=== PATIENT | male | born 1975 | race Caucasian/White ===

== ENCOUNTER 2018-10-07 22:10 | Emergency (ER) | payer OTHER ==
[2018-10-07 22:19] VITALS: BP 156/106
[2018-10-07] MEDS ORDERED: IBUPROFEN 200 MG TAB PO ONE (22:27)
--- NOTE | 2018-10-07 22:27 | EDPHY ---
H & P Stated Complaint: hurt tailbone Time Seen by Provider: 10/07/18 22:36 HPI/ROS: HPI The patient presents with pain in his tailbone region that has been present for the last 1 day. He has fallen twice, slipping on the ice today and landed on his buttocks. He suspects this is why his tailbone hurts. He is able to walk. He denies any numbness or tingling in his legs. He does not have any bowel or bladder changes. The pain in his tailbone is aching and worse with walking. He also says he is feeling sad. He is here from [place], moved about 7 days ago he says because he was looking for happiness. He took the bus here and [facility]. He has a history of depression and takes fluoxetine and another medication for this. He says he is poorly compliant with his medications in general. He says he feels sad though denies any SI or HI and feel safe. He reports that he uses marijuana and methamphetamine. He has been admitted to mental health hospitals in [place], last about 1 month ago for feeling suicidal without a plan.. REVIEW OF SYSTEMS 10 systems were reviewed and negative with the exception of the elements mentioned in the history of present illness. PMHx: History of depression he says for his whole life, takes medication, has been admitted to mental health hospitals for suicidal ideation in the past Soc Hx: Homeless, originally from [facility], moved to [place] 1 week ago, uses marijuana, methamphetamine, denies alcohol use PHYSICAL General Appearance: Alert, no distress Eyes: Pupils equal and round no pallor or injection ENT, Mouth: Mucous membranes moist Respiratory: There are no retractions, lungs are clear to auscultation Cardiovascular: Regular rate and rhythm Gastrointestinal: Abdomen is soft and non-tender, no masses, bowel sounds normal Neurological: A&O, moves all extremities Skin: Warm and dry, no rashes Musculoskeletal: Neck is supple non tender , mild tenderness overlying his coccyx Extremities: symmetrical, full range of motion Psychiatric: Patient is oriented X 3, there is no agitation Source: Patient Exam Limitations: No limitations - Personal History Current Tetanus/Diphtheria Vaccine: Yes Current Tetanus Diphtheria and Acellular Pertussis (TDAP): Yes - Medical/Surgical History Hx Asthma: No Hx Chronic Respiratory Disease: No Hx Diabetes: No Hx Cardiac Disease: No Hx Renal Disease: No Hx Cirrhosis: No Hx Alcoholism: Yes Hx HIV/AIDS: No Hx Splenectomy or Spleen Trauma: No Other PMH: depressed, bipolar, left foot surgery - Social History Smoking Status: Current some day smoker Constitutional: Initial Vital Signs Temperature (C) 36.8 C 10/07/18 22:10 Heart Rate 98 10/07/18 22:10 Respiratory Rate 16 10/07/18 22:10 Blood Pressure 156/106 H 10/07/18 22:10 O2 Sat (%) 94 10/07/18 22:10 O2 Delivery Mode Room Air Allergies/Adverse Reactions: bee venom protein (honey bee) Allergy (Verified 10/07/18 22:19) methylphenidate [From Ritalin] Allergy (Verified 10/07/18 22:19) Home Medications: Medication Instructions Recorded FLUoxetine 10/07/18 Prozac 10 MG (*) 10/07/18 Medical Decision Making Differential Diagnosis: This is a 43-year-old man with history of depression, who is homeless, newly arrive from [place] [facility] who is brought in by ambulance for coccyx pain after 2 falls today on the ice slipping and landing on his buttocks. On exam, he has minimal tenderness and no red flag features. I doubt any serious injury. He says he is feeling sad though is not suicidal, he does not meet criteria for M1 hold. I have offered him some ibuprofen for his pain. He was somewhat upset to be discharged after this. He said that he does not want to walk back to the [facility]. [facility] - Data Points Medications Given: Discontinued Medications Ibuprofen (Motrin) 400 mg PO EDNOW ONE Stop: 10/07/18 22:28 Last Admin: 10/07/18 22:34 Dose: 400 mg Departure - Departure Disposition: Home, Routine, Self-Care Clinical Impression: Coccydynia, Homeless Fall due to ice or snow Qualifiers: Encounter type: initial encounter Qualified Code(s): W00.9XXA - Unspecified fall due to ice and snow, initial encounter Condition: Good Instructions: [facility], Coccyx Injury (ED) Additional Instructions: I recommend you take ibuprofen or Tylenol as needed for your tailbone pain. You can follow up with [facility] for your depression if you would like. Referrals: [facility],. [Clinic] - As per Instructions [facility],. [Clinic] - As per Instructions
== END 2018-10-07 22:37 | disposition home or self-care (01) ==
DX: M53.3 Sacrococcygeal disorders, not elsewhere classified (principal); Z59.0 Homelessness

== ENCOUNTER 2018-10-09 18:35 | Emergency (ER) | payer OTHER ==
[2018-10-09 18:59] LABS: PLATELET COUNT 352 10^3/uL (150-400)
--- NOTE | 2018-10-09 19:17 | EDPHY ---
General Time Seen by Provider: 10/09/18 18:36 Narrative: CLINICAL IMPRESSION: Depressed ASSESSMENT/PLAN: 43-year-old male presents to the emergency department on an M1 hold by [employer] after making threats to kill himself by shooting himself. However, patient is homeless, does not have access to guns, and knives that were on his person were removed by [employer]. Patient is alert, cooperative. He has been to the emergency department twice this week and has only been in [place] for 1 week from [place] "seeking a better lifestyle". He is currently staying in the homeless intermediate. He was medically cleared and met with TLC provider Dulce. It was not felt this patient met requirements for inpatient psychiatric admission. Patient is asking for a bus pass back to [place] and states he will not kill himself if he can get on bus pass. This can be arranged by case management however they are not available at this time. Plan to keep the patient in the emergency department overnight and discussed with case management in the morning. M1 hold was lifted by on-call psychiatrist. Patient is voluntary at this time. Will plan to monitor and involve case management in the morning. DIFFERENTIAL DX: Differential includes but not limited to suicidal ideation, homicidal ideation , acute psychosis, intoxication, illicit drug abuse, malingering, infection ED PROCEDURES: See lab and/or imaging results below ED COURSE: Plan for this patient. Labs, urine, TLC evaluation. Placed on an M1 hold by [employer]. 7:40 p.m: This patient is medically cleared, TLC provider here and evaluating patient at this time. 8:35 P.M.: Patient has been evaluated by TLC provider. It was determined that he does not require inpatient psychiatric admission. Patient states "if I can have a bus pass back to [place] then I will not kill myself". We do not feel patient is in imminent threat to himself. However case management, who could authorize bus passes, is not in the ED at this time. Plan is to keep the patient overnight, address this with case management in the morning, and possibly obtain bus pass back to [place]. M1 hold lifted by psychiatrist. CHIEF COMPLAINT: Depressed, feeling suicidal HPI: 43-year-old male with a reported past medical history of bipolar disease and depression, noncompliant with medications, presents to the emergency department for the 2nd time in 2 days stating that he is feeling depressed and suicidal. Patient states he has a plan to shoot himself with a gun or "do anything else I need to kill myself". Patient is homeless and does not have access to guns. He did have knives on his body that were removed by the police. He was placed on an M1 hold by police. He reports he has been in [place] for 1 week after moving here from [place] for "a better life". However patient reports "I do not like the people here". He is currently living in a intermediate. He admits to past drug abuse but states he has only done marijuana recently. He states he was arrested in [place] for possession of marijuana and "Fled the country". He reports he has been admitted to psychiatric institutions in [place] "many times" reportedly as recently as 1 month ago. He reports in the past he did hold a rifle to his head was intending to shoot himself but "could not pull the trigger". Patient reports it has been many months since he took his medications. His only complaint today is coccyx pain after falling on his tailbone twice. He denies bowel or bladder incontinence, saddle anesthesia, abdominal pain, difficulty with bowel movements, rectal bleeding, lower extremity numbness or weakness, gait intolerance. PAST MEDICAL HISTORY: Depression, bipolar disease See nurse/triage notes for additional history if applicable Pertinent Past Surgical History: None reported Family History: Noncontributory Social History: Homeless, states he moved here a week ago from [place] REVIEW OF SYSTEMS: All other systems negative Constitutional: No fever, no chills, appetite change. Eyes: No discharge, vision change ENT: No sore throat, congestion, ear pain. Cardiovascular: No chest pain, no palpitations. Respiratory: No cough, no shortness of breath. Gastrointestinal: No abdominal pain, no vomiting, diarrhea. Genitourinary: No hematuria, dysuria, flank pain, pelvic pain Musculoskeletal: Tailbone pain,, joint swelling, joint pain, myalgias.] Skin: No rashes, color change. Neurological: No headache, dizziness, weakness. PHYSICAL EXAM: General Appearance: Alert, oriented, appropriate, cooperative, NAD, well hydrated, non-toxic appearing, VSS, no hypoxia. HEENT: Oropharynx clear is no erythema or exudates, no tonsillar hypertrophy or asymmetry. Dentition without abnormality.] Eyes: PERRLA, no acute vision change, nystagmus, swelling, discharge, pain or photosensitivity. Conjunctiva pink, no pallor or injection Neck: Supple, nontender, no lymphadenopathy, no midline pain, FROM, no meningismus. Respiratory: There are no retractions, lungs are clear to auscultation. Cardiac: Regular rate and rhythm, no murmurs or gallops. Gastrointestinal: Abdomen is soft, nontender, bowel sounds normal, no masses/ hernia, no rigidity, guarding or focal peritoneal findings. Neurological: [ Alert and oriented x 3, CN 2-12 grossly intact, normal gait no ataxia, no reported bowel or bladder incontinence or saddle anesthesia Skin: Warm, dry, no rashes, no nodules on palpation. Musculoskeletal: Extremities are symmetrical, full range of motion, no tenderness, deformity, swelling, or erythema. No reproducible pain to palpation of lumbar spine midline Psychiatric: Patient is oriented X 3, there is no agitation. Admits to feeling suicidal with a plan to shoot himself although has no access to guns. Admits to feeling depressed, cooperative, conversational with security system sales consultant MEDICAL DECISION MAKING: Patient was seen independently. Secondary supervising physician at time of evaluation was Dr. Corral. Diagnosis: Depressed, feeling suicidal . New, requires workup Summary: See Assessment and Plan for summary of ED visit Clinical lab tests: ordered / reviewed. Decision to obtain medical records or history from someone other than the patient: No Review / Summarize previous medical records: Reviewed recent ED records Discussed patient with another provider: Dulce Chacon from [facility] Patient Progress: Stable. - History Smoking Status: Current every day smoker - Objective Vital Signs: Initial Vital Signs Temperature (C) 36.7 C 10/09/18 18:48 Heart Rate 97 10/09/18 18:48 Respiratory Rate 20 10/09/18 18:48 O2 Sat (%) 96 10/09/18 18:48 O2 Delivery Mode Room Air Allergies/Adverse Reactions: bee venom protein (honey bee) Allergy (Verified 10/07/18 22:19) methylphenidate [From Ritalin] Allergy (Verified 10/07/18 22:19) Home Medications: Medication Instructions Recorded FLUoxetine 10/07/18 Prozac 10 MG (*) 10/07/18 Zyprexa 10/09/18 Laboratory Results: Laboratory Results 10/09/18 18:35 10/09/18 18:35 10/09/18 10/09/18 10/09/18 19:05 18:35 18:35 WBC 11.38 10^3/uL H 10^3/uL (3.80-9.50) RBC 5.19 10^6/uL 10^6/uL (4.40-6.38) Hgb 14.4 g/dL g/dL (13.7-17.5) Hct 43.3 % % (40.0-51.0) MCV 83.4 fL fL (81.5-99.8) MCH 27.7 pg L pg (27.9-34.1) MCHC 33.3 g/dL g/dL (32.4-36.7) RDW 12.5 % % (11.5-15.2) Plt Count 352 10^3/uL 10^3/uL (150-400) MPV 9.7 fL fL (8.7-11.7) Neut % (Auto) 65.6 % % (39.3-74.2) Lymph % (Auto) 23.6 % % (15.0-45.0) [place] % (Auto) 6.9 % % (4.5-13.0) Eos % (Auto) 2.9 % % (0.6-7.6) Baso % (Auto) 0.6 % % (0.3-1.7) Nucleat RBC Rel Count 0.0 % % (0.0-0.2) Absolute Neuts (auto) 7.46 10^3/uL H 10^3/uL (1.70-6.50) Absolute Lymphs (auto) 2.69 10^3/uL 10^3/uL (1.00-3.00) Absolute Monos (auto) 0.79 10^3/uL 10^3/uL (0.30-0.80) Absolute Eos (auto) 0.33 10^3/uL 10^3/uL (0.03-0.40) Absolute Basos (auto) 0.07 10^3/uL 10^3/uL (0.02-0.10) Absolute Nucleated RBC 0.00 10^3/uL 10^3/uL (0-0.01) Immature Gran % 0.4 % % (0.0-1.1) Immature Gran # 0.04 10^3/uL 10^3/uL (0.00-0.10) Sodium 136 mEq/L mEq/L (135-145) Potassium 4.1 mEq/L mEq/L (3.5-5.2) Chloride 104 mEq/L mEq/L (97-110) Carbon Dioxide 22 mEq/l mEq/l (22-31) Anion Gap 10 mEq/L mEq/L (6-14) BUN 28 mg/dL H mg/dL (7-23) Creatinine 1.1 mg/dL mg/dL (0.7-1.3) Estimated GFR > 60 Glucose 104 mg/dL H mg/dL (70-100) Calcium 9.4 mg/dL mg/dL (8.5-10.4) Urine Opiates Screen NEGATIVE (NEGATIVE) Urine Barbiturates NEGATIVE (NEGATIVE) Ur Phencyclidine Scrn NEGATIVE (NEGATIVE) Ur Amphetamine Screen NEGATIVE (NEGATIVE) U Benzodiazepines Scrn NEGATIVE (NEGATIVE) Urine Cocaine Screen NEGATIVE (NEGATIVE) U Marijuana (THC) Screen NON-NEGATIVE H (NEGATIVE) Ethyl Alcohol < 10 mg/dL mg/dL (0-10) Departure - Departure Condition: Good Referrals: NONE *PRIMARY CARE P,. [Primary Care Provider] - As per Instructions
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
--- NOTE | 2018-10-09 22:20 | ASMTTCLDSP ---
[facility] Discharge Disposition Disposition Notes: Notes: Pt 's hold was lifted. He was offered the ability to spend the night in the ED and await a consult with both CM and [facility] in morning with the hope that a plan can be devised to either help him feel safe in this community or return to [place]. Pt accepted this. Discharge Concerns/Recommendations: Notes: In consultation with [facility] ED physician,Dr Corral and on-call psychiatrist,Dr Funk , both concurred that Pt does not appear to meet 27-65 criteria requiring psychiatric hospitalization as Pt does not appear to be an imminent risk of harm to self due to a mental illness condition. Dr. Funk provided telephone order read back vacating M1 hold at 20:45. Date and time M1 hold 10/09/2018 08:45 PM vacated (time format is hh:mm): Type of Hold: Answers: M1/72-hour Hold Hold initiated by: Answers: Police Date Signed: 10/09/2018 10:19 PM Electronically Signed By:Dulce Isbell
[2018-10-10 08:40] VITALS: BP 129/69
== END 2018-10-10 10:59 | disposition home or self-care (01) ==
DX: F32.9 Major depressive disorder, single episode, unspecified (principal); F41.9 Anxiety disorder, unspecified; F31.9 Bipolar disorder, unspecified; Z59.0 Homelessness
CPT/HCPCS: 80305; G0480